=== PATIENT | male | born 1990 ===

== ENCOUNTER 2017-07-05 11:10 | Emergency (ER) | payer BC, OTHER ==
[2017-07-05 11:17] VITALS: BMI 21.6
[2017-07-05 11:19] VITALS: BP 122/63; PULSE 80; RESP 16; TEMP 98.1; O2SAT 99
--- NOTE | 2017-07-05 12:20 | ED PDOC ---
HPI: General Adult Time Seen by Provider: 07/05/17 12:00 Chief Complaint (Nursing): Eye Problem Chief Complaint (Provider): Eye Problem History Per: Patient History/Exam Limitations: no limitations Onset/Duration Of Symptoms: Other (x 1 week) Current Symptoms Are (Timing): Still Present Additional Complaint(s): Anastacio is a 27 year old male who presents to the Emergency Department complaining of bilateral eyelid inflammation for 1 week. Patient states today he woke up with both eyelids swollen up and could barely open his eyes. Patient denies eye pain, itchiness, and discharge. Denies allergies, any change in food consumption, and contact lenses. PCD: No Provider Past Medical History Reviewed: Historical Data, Nursing Documentation, Vital Signs Vital Signs: Last Vital Signs Temp 98.1 F 07/05/17 11:17 Pulse 80 07/05/17 11:17 Resp 16 07/05/17 11:17 BP 122/63 07/05/17 11:17 Pulse Ox 99 07/05/17 13:03 - Medical History PMH: No Chronic Diseases - Surgical History Surgical History: No Surg Hx - Family History Family History: States: Unknown Family Hx - Home Medications Home Medications: Ambulatory Orders Medication Instructions Recorded Famotidine [Pepcid] 20 mg PO Q12 #20 tab 06/19/16 Ciprofloxacin HCl [Ciloxan] 1 drop RIGHTEYE QID #1 bottle 07/05/17 predniSONE [Prednisone] 3 tab PO DAILY #12 tab 07/05/17 - Allergies Allergies/Adverse Reactions: Allergies Allergy/AdvReac Type Severity Reaction Status Date / Time No Known Allergies Allergy Verified 06/19/16 19:45 Review of Systems ROS Statement: Except As Marked, All Systems Reviewed And Found Negative Eyes: Positive for: Eyelid Inflammation. Negative for: Pain, Other (Itchiness) Physical Exam - Reviewed Nursing Documentation Reviewed: Yes Vital Signs Reviewed: Yes - Physical Exam Appears: Positive for: Non-toxic Head Exam: Positive for: NORMAL INSPECTION Eye Exam: Positive for: Other (Small amount of fluorescein uptake, noted lateral aspect right eye not involving pupil ) Respiratory: Negative for: Respiratory Distress Extremity: Negative for: Deformity Neurologic/Psych: Positive for: Alert - ECG O2 Sat by Pulse Oximetry: 99 (RA) Pulse Ox Interpretation: Normal Medical Decision Making Medical Decision Making: Time: 12:19 Plan: - Prednisone Tab 60 mg PO Time: 12:30 Upon provider evaluation patient is medically stable, and requires no further treatment in the ED at this time. Patient will be discharged with Rx for Ciloxan and Prednisone. Counseling was provided and all questions were answered regarding diagnosis and need for follow up with PCP. There is agreement to discharge plan. Return if symptoms persist or worsen. Scribe Attestation: Documented by Jeet Chisholm, acting as a scribe for Deborah Cuello PA-C. Provider Scribe Attestation: All medical record entries made by the Scribe were at my direction and personally dictated by me. I have reviewed the chart and agree that the record accurately reflects my personal performance of the history, physical exam, medical decision making, and the department course for this patient. I have also personally directed, reviewed, and agree with the discharge instructions and disposition. Disposition - Clinical Impression Clinical Impression: Swollen eyelid - Patient ED Disposition Is Patient to be Admitted: No - Disposition Referrals: [facility] [Outside] Ezra Xavier MD [Staff Provider] - Disposition: Routine/Home Disposition Time: 12:30 Condition: STABLE Prescriptions: Ciprofloxacin HCl [Ciloxan] 1 drop RIGHTEYE QID #1 bottle predniSONE [Prednisone] 3 tab PO DAILY #12 tab Instructions: Corneal Abrasion (ED), General Allergic Reaction (ED) Forms: [employer] ([place]), [facility] ED School/Work Excuse
== END 2017-07-05 12:32 | disposition home or self-care (01) ==
LOC: H.ER 11:10
DX: H02.841 Edema of right upper eyelid (principal); H02.842 Edema of right lower eyelid